=== PATIENT | female | born 1995 | race Two or more races ===

== ENCOUNTER 2023-08-22 14:35 | Outpatient (CLI) | payer OTHER | END 2023-08-22 15:23 | disposition home or self-care (01) | LOC: PRENATAL 14:35 | PROVIDERS: ATTEND Obstetrics & Gynecology Maternal & Fetal Medicine | DX: O26.849 Uterine size-date discrepancy, unspecified trimester (principal); Z3A.23 23 weeks gestation of pregnancy ==

== ENCOUNTER → 2023-09-28 15:42 | Outpatient (CLI) | payer OTHER | END | disposition home or self-care (01) | LOC: PRENATAL 15:42 | PROVIDERS: ATTEND Obstetrics & Gynecology Maternal & Fetal Medicine | DX: O26.849 Uterine size-date discrepancy, unspecified trimester (principal); Z3A.28 28 weeks gestation of pregnancy ==

== ENCOUNTER 2023-11-06 14:48 | Outpatient (CLI) | payer OTHER | END 2023-11-06 14:49 | disposition home or self-care (01) | LOC: PRENATAL 14:48 | PROVIDERS: ATTEND Obstetrics & Gynecology Maternal & Fetal Medicine | DX: O26.849 Uterine size-date discrepancy, unspecified trimester (principal); O36.8199 Decreased fetal movements, unspecified trimester, other fetus; Z3A.34 34 weeks gestation of pregnancy ==

== ENCOUNTER → 2023-12-10 | Outpatient (CLI) | payer OTHER ==
[~2023-12-10] VITALS: Ht 160 cm; Wt 83.9 kg
[~2023-12-10] MED LIST: 0.9 % SODIUM CHLORIDE 1,000 ML IV SCH; ACETAMINOPHEN 500 MG GEL..CAP PO PRN; PRENATABS RX T1 EACH PO
[2023-12-10 02:07] LABS: HEMATOCRIT 35.8 % (36.0-45.00); HEMOGLOBIN 11.7 g/dL (12.0-15.00); MEAN CELL VOLUME 73.3 fL (80.00-100.00); MEAN CORPUSCULAR HEMOGLOBIN 23.8 pg (27.00-32.0); MEAN CORPUSCULAR HGB CONC 32.5 g/dl (32.0-36.0); PLATELET COUNT 135 K/uL (150-450); RED BLOOD COUNT 4.89 M/uL (4.00-6.00); RED CELL DISTRIBUTION WIDTH 15.1 % (11.5-14.5)
[2023-12-10 02:29] LABS: PH,URINE 6.5 (5.0-8.0); URINE APPEARANCE Clear; URINE BILIRRUBIN Negative (NEGATIVE); URINE BLOOD Negative; URINE COLOR Yellow; URINE LEUKOCYTE Trace; URINE NITRATE Negative; URINE PROTEIN Trace (NEGATIVE)
[2023-12-10 02:33] LABS: URINE BACTERIA 123.4 uL (0.0-1933); URINE EPITHELIAL CELLS 18.3 uL (0.0-38.8); URINE RBC 4.7 uL (0.0-20.8); URINE WBC 16.2 uL (0.0-23.2)
[2023-12-10 02:40] LABS: ALBUMIN 2.9 gm/dL (3.4-5.0); BILIRUBIN TOTAL 0.22 mg/dL (0.3-1.2); CALCIUM 9.2 mg/dL (8.5-10.1); CREATININE SERUM 0.49 mg/dL (0.55-1.02); GFR 151.49; GLOBULINA 3.7 G/DL (2.4-3.5); POTASSIUM 3.6 mEq/L (3.5-5.1); TOTAL PROTEIN 6.6 gm/dL (6.4-8.2)
[2023-12-10 02:43] LABS: URINE GLUCOSE >=1000 MG/DL (NEGATIVE)
== END | disposition home or self-care (01) ==
LOC: OBS/DEL 00:33 → LDR 01:05 → OBS/DEL 07:42
PROVIDERS: ATTEND Obstetrics & Gynecology
DX: O26.893 Other specified pregnancy related conditions, third trimester (principal); Z3A.38 38 weeks gestation of pregnancy; K52.89 Other specified noninfective gastroenteritis and colitis

== ENCOUNTER 2023-12-11 14:00 | Inpatient (IN) | payer OTHER ==
[~2023-12-11] VITALS: Ht 160 cm; Wt 86.2 kg
[~2023-12-11 14:00] MED LIST changes: -0.9 % SODIUM CHLORIDE 1,000 ML IV SCH; -ACETAMINOPHEN 500 MG GEL..CAP PO PRN
[2023-12-19] MEDS ORDERED: MORPHINE SULFATE 4 MG/ML CARTRIDGE IV ONE (08:45)
[2023-12-19] MEDS ORDERED: OXYTOCIN 500 ML IV SCH (08:45)
[2023-12-19 09:15] LABS: HEMATOCRIT 36.5 % (36.0-45.00); MEAN CELL VOLUME 72.7 fL (80.00-100.00); MEAN CORPUSCULAR HEMOGLOBIN 23.9 pg (27.00-32.0); MEAN CORPUSCULAR HGB CONC 32.8 g/dl (32.0-36.0); PLATELET COUNT 176 K/uL (150-450); RED BLOOD COUNT 5.02 M/uL (4.00-6.00); RED CELL DISTRIBUTION WIDTH 15.1 % (11.5-14.5)
[2023-12-19 09:22] LABS: PH,URINE 6.5 (5.0-8.0); URINE APPEARANCE Clear; URINE BILIRRUBIN Negative (NEGATIVE); URINE BLOOD Negative; URINE COLOR Yellow; URINE LEUKOCYTE Negative; URINE NITRATE Negative; URINE PROTEIN Negative (NEGATIVE); URINE UROBILINOGEN 0.2 E.U./dl
[2023-12-19 09:24] LABS: URINE BACTERIA 297.2 uL (0.0-1933); URINE EPITHELIAL CELLS 21.1 uL (0.0-38.8)
[2023-12-19] MEDS ORDERED: RINGERS SOLUTION,LACTATED 1,000 ML IV SCH (09:30)
[2023-12-19 09:46] LABS: ALBUMIN 2.8 gm/dL (3.4-5.0); BILIRUBIN TOTAL 0.24 mg/dL (0.3-1.2); CALCIUM 9.3 mg/dL (8.5-10.1); CREATININE SERUM 0.47 mg/dL (0.55-1.02); GFR 158.95; GLOBULINA 4.1 G/DL (2.4-3.5); POTASSIUM 3.62 mEq/L (3.5-5.1); TOTAL PROTEIN 6.9 gm/dL (6.4-8.2)
[2023-12-19 09:47] LABS: INR 0.96; PROTHROMBIN TIME 10.1 SECONDS (9.0-11.5)
[2023-12-19 09:48] LABS: PARTIAL THROMBOPLASTIN TIME 27.8 SECONDS (22.0-34.0)
[2023-12-19 10:04] LABS: URINE GLUCOSE 250 MG/DL (NEGATIVE); URINE RBC 1.2 uL (0.0-20.8)
[2023-12-19] MEDS ORDERED: CHLORHEXIDINE GLUCONATE 120 ML BOTTLE TOP ONE (12:31)
[2023-12-19] MEDS ORDERED: ERYTHROMYCIN BASE 1 GM TUBE OP ONE ×2 (12:32→14:15)
[2023-12-19] MEDS ORDERED: IBUprofen 400 MG TABLET PO PRN (14:15)
[2023-12-19 14:25] LABS: ABG PH 7.286 (7.35-7.45); ABG pCO2 42.3 mmHg (35-45)
[2023-12-19 14:26] LABS: ABG PO2 37.2 mmHg (80-100); BASE EXCESS -6.6 mmol/l; BICARBONATE 19.7 mmol/l (23-25); SaO2 61.6 %; o2 21 %
[2023-12-19] MEDS ORDERED: OXYTOCIN 1,000 ML IV SCH (14:30)
[2023-12-19] MEDS ORDERED: LIDOCAINE HCL 100 MG/10ML VIAL IJ ONE (14:30)
[2023-12-19] MEDS ORDERED: LABETALOL HCL 200 MG TABLET PO SCH (15:00)
[2023-12-19 19:40] LABS: HEMATOCRIT 36.5 % (36.0-45.00); HEMOGLOBIN 11.9 g/dL (12.0-15.00); MEAN CELL VOLUME 72.2 fL (80.00-100.00); MEAN CORPUSCULAR HEMOGLOBIN 23.6 pg (27.00-32.0); MEAN CORPUSCULAR HGB CONC 32.7 g/dl (32.0-36.0); PLATELET COUNT 156 K/uL (150-450); RED BLOOD COUNT 5.05 M/uL (4.00-6.00); RED CELL DISTRIBUTION WIDTH 15.9 % (11.5-14.5)
[2023-12-20] MEDS ORDERED: LABETALOL HCL 300 MG TABLET PO SCH (05:00)
[2023-12-20] MEDS ORDERED: PNV,CALCIUM 72/IRON/FOLIC ACID 1 TAB TABLET PO SCH (09:00)
== END 2023-12-21 14:22 | disposition home or self-care (01) | DRG 807 ==
LOC: LDR 12-18 14:00 → OB/GYN 12-19 07:36
PROVIDERS: ADMIT Obstetrics & Gynecology; ATTEND Obstetrics & Gynecology
PROC: 10E0XZZ Delivery of Products of Conception, External Approach (ICD-10-PCS; principal; 2023-12-19)
PROC: 4A1HXCZ Monitoring of Products of Conception, Cardiac Rate, External Approach (ICD-10-PCS; 2023-12-19)
DX: O80 Encounter for full-term uncomplicated delivery (principal); Z37.0 Single live birth; Z3A.40 40 weeks gestation of pregnancy; Z20.822 Contact with and (suspected) exposure to COVID-19